=== PATIENT | female | born 1950 | race Caucasian/White ===

== ENCOUNTER 2017-12-01 22:22 | Emergency (ER) | payer OTHER ==
[~2017-12-01] VITALS: Ht 160 cm; Wt 79.8 kg
[2017-12-01 22:25] VITALS: BP 180/87
[2017-12-01] MEDS ORDERED: LIDOCAINE 0.5% HCL 50 ML VIAL ONE (23:19)
--- NOTE | 2017-12-01 23:21 | NUR ---
PT LEFT FOR RADIOLOGY VIA [facility]
[2017-12-01] MEDS ORDERED: TDAP [DIPH/PERTUSSIS/TET] 0.5 ML VIAL IM ONE ×2 (23:30→23:38)
[2017-12-01] MEDS ORDERED: IBUPROFEN 600 MG TABLET PO ONE ×2 (23:30→23:38)
--- NOTE | 2017-12-01 23:31 | NUR ---
PT RETURNED, TO ER #[id number], FROM RADIOLOGY VIA [facility].
== END 2017-12-02 00:58 | disposition home or self-care (01) ==
LOC: ER 22:29
DX: S61.215A Laceration without foreign body of left ring finger without damage to nail, initial encounter (principal); S39.92XA Unspecified injury of lower back, initial encounter; M54.2 Cervicalgia; I10 Essential (primary) hypertension; F31.9 Bipolar disorder, unspecified; Z87.448 Personal history of other diseases of urinary system; Z88.8 Allergy status to other drugs, medicaments and biological substances; W01.0XXA Fall on same level from slipping, tripping and stumbling without subsequent striking against object, initial encounter; Y93.89 Activity, other specified; Y92.002 Bathroom of unspecified non-institutional (private) residence as the place of occurrence of the external cause; Y99.0 Civilian activity done for income or pay
CPT/HCPCS: 12001; 72220; 90471; 90715; 99284; A4606; A6402; J3490; Z7610

== ENCOUNTER 2017-12-04 15:55 | Emergency (ER) | payer OTHER ==
[~2017-12-04] VITALS: Ht 160 cm; Wt 79.4 kg
[2017-12-04 16:45] VITALS: BP 148/80
--- NOTE | 2017-12-04 16:46 | NUR ---
Patient discharged to home in stable condition. Written and verbal after care instructions given. Patient verbalizes understanding of instruction.
== END 2017-12-04 16:46 | disposition home or self-care (01) ==
LOC: ER 15:59
DX: S61.215D Laceration without foreign body of left ring finger without damage to nail, subsequent encounter (principal); F31.9 Bipolar disorder, unspecified; Z88.8 Allergy status to other drugs, medicaments and biological substances
CPT/HCPCS: A4606; Z7502; Z7610

== ENCOUNTER 2017-12-11 15:54 | Emergency (ER) | payer OTHER ==
[~2017-12-11] VITALS: Ht 160 cm; Wt 79.4 kg
[2017-12-11 15:54] VITALS: BP 150/91
== END 2017-12-11 16:38 | disposition home or self-care (01) ==
LOC: ER 15:55
DX: S61.412D Laceration without foreign body of left hand, subsequent encounter (principal); R32 Unspecified urinary incontinence; F31.9 Bipolar disorder, unspecified; I10 Essential (primary) hypertension; Z87.448 Personal history of other diseases of urinary system; Z88.8 Allergy status to other drugs, medicaments and biological substances; X58.XXXD Exposure to other specified factors, subsequent encounter
CPT/HCPCS: 99282; A4606; Z7610